=== PATIENT | female | born 1990 ===

== ENCOUNTER 2017-03-06 01:11 | Inpatient (IN) | payer BC ==
[~2017-03-06] VITALS: Ht 162.6 cm; Wt 75.0 kg
[~2017-03-06 01:11] MED LIST: DOCO200C7 PO; LEVO100T4 PO
[2017-03-06] MEDS ORDERED: LIDOCAINE 1% (10mg/ml) 2ml SDV ID PRN (01:45)
[2017-03-06] MEDS ORDERED: MAG-AL + SIM LIQUID 30 ML UDC PO PRN ×2 (01:45→13:30)
[2017-03-06] MEDS ORDERED: CALCIUM CARBONATE 500mg Chewable TAB PO PRN ×2 (01:45→13:30)
[2017-03-06] MEDS ORDERED: ACETAMINOPHEN 500 MG TABLET PO PRN ×2 (01:45→13:30)
[2017-03-06] MEDS: LR 1,000 ML IV PRN ×3 (01:54→08:51)
[2017-03-06 01:59] LABS: HCT - HEMATOCRIT 33.3 % (36-46); HGB - HEMOGLOBIN 10.7 GM/DL (12-16); MEAN CORPUSCULAR HGB 24.5 UUG (26-34); MEAN CORPUSCULAR HGB CONC(MCHC 32.1 GM/DL (31-37); MEAN CORPUSCULAR VOLUME 76.4 UM3 (80-100); MEAN PLATELET VOLUME 11.5 UM3 (9.4-12.4); RED BLOOD COUNT 4.36 M/MM3 (4.00-5.20); WBC - WHITE BLOOD COUNT 10.1 T/MM3 (4.5-11.0)
[2017-03-06] MEDS ORDERED: OXYTOCIN 30 UNIT in D5LR 500 ML SCH (02:30)
[2017-03-06] MEDS: D5LR 1,000 ML IV PRN ×2 (02:32→12:34)
--- NOTE | 2017-03-06 09:14 | ANESOB ---
Epidural/ Date/Time DATE: 03/06/17 TIME: 09:12 Preop Diagnosis , SROM @ 0030 Procedure: Labor Epidural Plan: Epidural Height: 5 ' 4.00 " Weight: 75.000 kg BMI: kg/m2 NPO since: 1800 P:1 Heart Rate: 123 Medications & Allergies Inpatient Medications Current Medications Medications (Trade) Dose Ordered Sig/Hari Start Time Stop Time Status Last Admin Dose Admin Lidocaine HCl 0.2 mg 0.2 mg PRN PRN 03/06/17 01:45 Lactated Ringer's (Lactated Ringers) 1,000 ml @ 0 mls/hr Q0M PRN 03/06/17 01:37 03/06/17 08:51 999 MLS/HR Acetaminophen (Tylenol Extra Strength) 1-2 TABS = 500-1,000 MG Q4H PRN 03/06/17 01:45 Al Hydroxide/Mg Hydroxide (Maalox) 30 ml Q4H PRN 03/06/17 01:45 Calcium Carbonate 1-2 TABS Q2H PRN 03/06/17 01:45 Dextrose/Lactated Ringer's 1,000 ml @ 0 mls/hr Q0M PRN 03/06/17 02:30 03/06/17 02:32 0 MLS/HR Oxytocin/Dextrose/ Lactated Ringer's (Pitocin/D5lr) 503 ml @ 0 mls/hr Q0M 03/06/17 02:30 03/06/17 02:32 0 MLS/HR Docosahexanoic Acid ( Dha) 200 Mg Capsule, 1 CAP PO DAILY, (Reported) Levothyroxine Sodium (Synthroid) 100 Mcg Tablet, 1 TAB PO ACB, (Reported) BEST IF TAKEN BEFORE BREAKFAST Last Taken: on 03/05/17 Coded Allergies: No Known Allergies (Unverified , 07/31/14) Medical/Surgical History Anesthesia PMH: Reports: Reflux (), Thyroid Disease (hypothyroid), Denies: *Diabetes, Anesthesia Reactions, Malignant Hyperthermia Smoking Status: Never smoker Does patient use chewing tobac: No Alcohol Intake: none Anesthesia Adverse Reactions: FOUND none Family Hx of Anesthesia Advers: none Hx of Motion Sickness: No Complications During : No Pertinent Findings Laboratory Tests 03/06/17 01:52 Physical Exam Respiratory: Lungs clear Cardiovascular: Regular rate, rhythm Airway Assessment Mallampati Score: II TMD: 3 Fingerbreadths Neck Extension: Good Overall Assessment: No Airway Concerns ASA: 2 Discussion Discussed risks/options/alternatives of anesthesia. Patient consents. Nursing pain assessment noted. Present for Discussion: Present: Spouse Attestation Statement Prior to the delivery of any anesthetic medication, I examined the patient, developed the plan, obtained the patient's consent and discussed the risk and benefits of the procedure with the patient/guardian. If the note happens to be signed after anesthesia start time, it is only due to providing efficient care of the patient and documenting at a time when the computer is available. KENYATTA CHAVIRA BILINGUAL TRAINER March 06, 2017 09:14
[2017-03-06] MEDS ORDERED: ONDANSETRON 4mg/2ml INJECTION IV PRN (09:15)
[2017-03-06] MEDS ORDERED: NALOXONE 0.4mg/ml INJECTION IV PRN (09:15)
[2017-03-06] MEDS ORDERED: ROPIVACAINE 1% 200 MG, SUFENTANIL 50 MCG in NORMAL SALINE 80 ML EPI PRN (09:15)
[2017-03-06] MEDS ORDERED: DiphenhydrAMINE 50 MG/ML INJECTION IV PRN (09:15)
[2017-03-06] MEDS ORDERED: OXYTOCIN 30 UNIT in D5W 500 ML IV ONE (13:17)
[2017-03-06] MEDS ORDERED: OXYTOCIN 30 UNIT in D5LR 500 ML IV ONE (13:17)
[2017-03-06] MEDS ORDERED: DiphenhydrAMINE 25 MG CAPSULE PO PRN (13:30)
[2017-03-06] MEDS ORDERED: HYDROCORTISONE 2.5% CREAM 30 GM RECTALLY PRN (13:30)
[2017-03-06] MEDS ORDERED: PHENYLEPHRINE RECTAL SUPPOSITORY RECTALLY PRN (13:30)
[2017-03-06] MEDS ORDERED: MILK OF MAGNESIA 30 ML SUSP PO PRN (13:30)
[2017-03-06] MEDS ORDERED: TETANUS,DIPHTH,a PERTUS (Tdap) 0.5 ML VIAL IM ONE (15:00)
--- NOTE | 2017-03-06 15:02 | LDNF ---
DATE OF DELIVERY: 03/06/2017 Dx: 1) 27yo 38.6 wk ga 2) Pit induction for PROM 3) epidural 4) 5) Short Umb Cord 6) Male , ([place]) 3665gm (8# 1.2oz) DESCRIPTION This is a 27-year-old G2, P1 at 38.6 weeks gestational age. She is a patient of Dr. Padmini Castelan. She is scheduled for an induction in two days. Her water broke at 0015 hours this morning. She came in and was evaluated and [facility]ni[facility] confirmed rupture of membranes. She was not laurie. heart tones were reactive. Pitocin induction for PROM was started approximately 2:30 a.m. Pitocin reached a maximum of 28 milliunits/minute. Initially her cervix was 1 and very posterior. She had an epidural block during the course of labor. She made it to complete dilation around noon and was allowed to labor down for about 45 minutes before again pushing at 12:45 p.m. Spontaneous vaginal delivery occurred at 1303 hours. was bulb suctioned after delivery of the head and then again after delivery of the body. Cord was doubly clamped and cut after draining for about a minute and a half and the 's father cut the cord. was initially placed on the mother's abdomen. Placenta delivered spontaneously and was intact. It was noted that the umbilical cord was shorter than usual. The perineum was essentially intact with no stitches needed. EBL was 350. Maternal blood type is A+, rubella is immune and GBS is negative. At time of dictation mother and are doing well. MTDD
--- NOTE | 2017-03-06 17:55 | NUR ---
Epidural Epidural catheter removed without complications, tip intact, no S/S of infection noted. Area cleansed with alcohol, betadine and covered with a bandaid. Pt. educated about S/S of infection and to call doctor with concerns.
[2017-03-06 17:57] VITALS: BP 110/71; PULSE 78; RESP 18; TEMP 98.4; O2SAT 98
[2017-03-06] MEDS: HYDROCODONE/APAP 5 mg/325 mg TABLET PO PRN (18:14)
[2017-03-06] MEDS: IBUPROFEN 800 MG TABLET PO PRN (18:14)
--- NOTE | 2017-03-06 19:25 | NUR ---
Progress Note Pt ambulated to bathroom with RN supervision and denied dizziness. Pt unable to void at this time. RN educated pt about pericare and skin care. Pt verbalized understanding and performed self pericare, RN assisted with skin care. Pad and ice pack changed with tucks pads and benzo spray. Linens changed. Will continue to monitor per plan of care.
[2017-03-06 22:21] VITALS: BP 116/71; PULSE 87; RESP 18; TEMP 98.1; O2SAT 98
--- NOTE | 2017-03-06 23:22 | NUR ---
Synthroid Day time dose missed due to labor. RN offers to give in evening and pt declines and reports she will take it in AM. Consult with Regina Senior Grant Writer and she agrees with plan of care. Will continue to monitor per plan of care.
--- NOTE | 2017-03-07 01:47 | NUR ---
Chart Check 24 hour chart check completed
--- NOTE | 2017-03-07 02:33 | NUR ---
Shift Summary Pt's VS stable. Fundus firm, minimal lochia, and voiding w/o difficulty. IVSL. Pt tolerating po fluids and regular diet. Pt performing cares for self and baby with help of at bedside. Pain controlled with po pain meds as ordered, Motrin and Aurora. Pt up ad kaitlin in room. Pt attentive to needs and bonding appropriately. Call torres in reach. Will continue to monitor per plan of care.
[2017-03-07 05:50] VITALS: BP 111/76; PULSE 98; RESP 15; TEMP 97.6; O2SAT 100
[2017-03-07] MEDS ORDERED: LEVOTHYROXINE 100 MCG TABLET PO SCH (06:30)
[2017-03-07 07:12] LABS: HCT - HEMATOCRIT 29.9 % (36-46); HGB - HEMOGLOBIN 9.3 GM/DL (12-16); MEAN CORPUSCULAR HGB 24.2 UUG (26-34); MEAN CORPUSCULAR HGB CONC(MCHC 31.1 GM/DL (31-37); MEAN CORPUSCULAR VOLUME 77.7 UM3 (80-100); MEAN PLATELET VOLUME 11.5 UM3 (9.4-12.4); RED BLOOD COUNT 3.85 M/MM3 (4.00-5.20); WBC - WHITE BLOOD COUNT 11.3 T/MM3 (4.5-11.0)
[2017-03-07] MEDS: IBUPROFEN 800 MG TABLET PO PRN (07:17)
[2017-03-07] MEDS: HYDROCODONE/APAP 5 mg/325 mg TABLET PO PRN ×2 (07:18→13:00)
[2017-03-07] MEDS ORDERED: DOCUSATE CALCIUM 240 MG CAPSULE PO SCH (09:00)
--- NOTE | 2017-03-07 09:13 | PNPDOC ---
Progress Note PPD1 Rubella: Immune GBS: Negative Blood Type:A pos Subjective 03/07/17 Lochia: Minimal Pain: Controlled Voiding: Voiding Nausea and Vomiting: No Nausea/Vomiting Objective Vital Signs Date Time Temp Pulse Resp B/P Pulse Ox O2 Delivery O2 Flow Rate FiO2 03/07/17 05:50 97.6 98 15 111/76 100 Room Air Urine Output: Good General: Alert and Oriented Abdomen: Fundus Firm, Non-tender Extremities: Non-tender Edema: None Laboratory Item Value Date Time White Blood Count 10.1 T/MM3 03/06/17 0152 White Blood Count 11.3 T/MM3 H 03/07/17 0650 Hemoglobin 9.3 GM/DL L # 03/07/17 0650 Hemoglobin 10.7 GM/DL L 03/06/17 0152 Platelet Count 171 T/MM3 03/06/17 0152 Platelet Count 133 T/MM3 03/07/17 0650 Assessment SP, Plan Routine Care Expected date of discharge: March 07, 2017 Pt would like dismissal this pm. Reviewed PP instructions, precautions, meds. Q& A GURINDER MIR MD March 07, 2017 09:13
[2017-03-07] MEDS ORDERED: DOCU240C40 PO (09:14)
[2017-03-07] MEDS ORDERED: HYDR-4246 PO (09:14)
[2017-03-07] MEDS ORDERED: IBUP-1547 PO (09:14)
[2017-03-07 14:22] VITALS: BP 122/57; PULSE 85; RESP 16; TEMP 97.9; O2SAT 98
--- NOTE | 2017-03-07 19:45 | ANESPO ---
Post-Op Note Date 03/07/17 Time: 12:00 Status Pt Participated in Evaluation: Pt participated in person Vital Signs Date Time Temp Pulse Resp B/P Pulse Ox O2 Delivery O2 Flow Rate FiO2 03/07/17 14:22 97.9 85 16 122/57 98 Room Air Respiratory Function: Airway patent Cardiovascular Function: Regular pulse Mental Status: Alert/oriented Pain Level Intensity: 0 Hydration: Taking po fluids Complications during Recovery None apparent Follow-Up Instructions Instructions Per Surgeon ALINA SHERMAN CRNA March 07, 2017 19:45
== END 2017-03-07 14:25 | disposition home or self-care (01) | DRG 775 ==
LOC: MC 01:11 → OBOBS 01:11 → MC 01:29
PROVIDERS: ADMIT Obstetrics & Gynecology; ATTEND Obstetrics & Gynecology
PROC: 10E0XZZ Delivery of Products of Conception, External Approach (ICD-10-PCS; principal; 2017-03-06)
PROC: 3E033VJ Introduction of Other Hormone into Peripheral Vein, Percutaneous Approach (ICD-10-PCS; 2017-03-06)
DX: O42.02 Full-term premature rupture of membranes, onset of labor within 24 hours of rupture (principal); Z3A.38 38 weeks gestation of pregnancy; Z37.0 Single live birth; O99.284 Endocrine, nutritional and metabolic diseases complicating childbirth; E03.9 Hypothyroidism, unspecified
CPT/HCPCS: 36415; 84112; 85027; 90715